=== PATIENT | female | born 1970 | race Caucasian/White ===

== ENCOUNTER → 2024-05-01 | Outpatient (REF) | payer BC | LOC: CT 13:20 | PROVIDERS: ATTEND Internal Medicine | DX: R91.1 Solitary pulmonary nodule (principal) | CPT/HCPCS: 71250 ==

== ENCOUNTER → 2024-11-26 | Outpatient (REF) | payer BC | LOC: CT 15:52 | PROVIDERS: ATTEND Internal Medicine | DX: R91.1 Solitary pulmonary nodule (principal) | CPT/HCPCS: 71250 ==

== ENCOUNTER → 2025-03-10 | Outpatient (REF) | payer BC | LOC: RAD 15:22 | PROVIDERS: ATTEND Internal Medicine | DX: J47.9 Bronchiectasis, uncomplicated (principal); R91.1 Solitary pulmonary nodule | CPT/HCPCS: 71046 ==